=== PATIENT | female | born 1940 | race Caucasian/White ===

== ENCOUNTER 2018-02-06 11:50 | Outpatient (CLI) | payer MEDICARE | END 2018-02-06 11:51 | disposition home or self-care (01) | LOC: BICMAMMO 11:50 | PROVIDERS: ATTEND Family Medicine | DX: Z12.31 Encounter for screening mammogram for malignant neoplasm of breast (principal); R92.1 Mammographic calcification found on diagnostic imaging of breast; Z80.3 Family history of malignant neoplasm of breast | CPT/HCPCS: 77063; 77067 ==

== ENCOUNTER 2020-05-29 22:59 | Emergency (ER) | payer MEDICARE ==
[2020-05-29] MEDS ORDERED: cloNIDine 0.1 MG TAB ONE (23:15)
--- NOTE | 2020-05-29 23:31 | RAD ---
Portable frontal chest radiograph: 05/29/2020 COMPARISON: 09/17/2015 HISTORY: Difficulty breathing, shortness of breath FINDINGS: There is stable prominence of the cardiac silhouette and atherosclerotic calcification of t he aortic arch. There is stable increased linear interstitial density with pulmonary hyperinflation. No focal consolidation or alveolar edema. IMPRESSION: No acute findings.
[2020-05-29 23:33] LABS: #Basophils 0.1 thou/uL (0.0-0.2); #Eosinphils 0.1 thou/uL (0.0-0.7); #Lymphocytes 3.3 thou/uL (1.20-3.40); #Monocytes 0.6 thou/uL (0.11-0.59); #Neutrophils 4.6 thou/uL (1.40-6.50); %Basophils 0.8 % (0.0-1.0); %Eosinophils 1.4 % (0.0-10.0); %Lymphocytes 38.5 % (21.0-51.0); %Monocytes 6.4 % (0.0-10.0); %Neutrophils 52.9 % (42.0-75.0); Hemoglobin 11.5 g/dL (12.0-16.0); Mean Corpuscular HGB CONC 33.6 g/dL (32.0-36.0); Mean Corpuscular Hemoglobin 29.5 pg (27.0-31.0); Mean Corpuscular Volume 87.9 fL (78.0-98.0); Mean Platelet Volume 8.5 fL (7.4-10.4); Platelet Count 240 thou/uL (130-400); RBC Distribution Width 14.5 % (11.5-14.5); Red Blood Cell (RBC) Count 3.91 mill/uL (4.20-5.40); White Blood Cell (WBC) Count 8.7 thou/uL (4.8-10.8)
[2020-05-29 23:54] LABS: ALT (SGPT) 9 U/L (8-55); AST (SGOT) 9 U/L (5-34); Alkaline Phosphatase 53 U/L (40-110); Anion Gap 14 mmol/L (10-20); BUN (Urea Nitrogen) 14 mg/dL (9.8-20.1); Bilirubin, Total 0.6 mg/dL (0.2-1.2); Calc. Creatinine Clearance 0 mL/min (70-130); Calcium 9.4 mg/dL (7.8-10.44); Carbon Dioxide 23 mmol/L (23-31); Chloride 102 mmol/L (98-107); Globulin 2.7 g/dL (2.4-3.5); Glucose 295 mg/dL (83-110); Potassium 3.6 mmol/L (3.5-5.1); Protein, Total 6.7 g/dL (6.0-8.3); Sodium 135 mmol/L (136-145)
--- NOTE | 2020-06-03 10:33 | EKG ---
Test Reason : Blood Pressure : / mmHG Vent. Rate : 058 BPM Atrial Rate : 058 BPM P-R Int : 138 ms QRS Dur : 082 ms QT Int : 428 ms P-R-T Axes : 055 -06 053 degrees QTc Int : 420 ms Sinus bradycardia Possible Left atrial enlargement Left ventricular hypertrophy ST abnormality, possible digitalis effect Abnormal ECG Confirmed by MICHAEL VYAS M.D. ([id number]), managing editor JONNA MCCORD ([id number] on 06/03/2020 10:33:04 AM Referred By: Confirmed By:MICHAEL VYAS M.D.
== END 2020-05-30 00:53 | disposition home or self-care (01) ==
LOC: ERS 22:59
DX: R06.01 Orthopnea (principal); E11.65 Type 2 diabetes mellitus with hyperglycemia; K21.9 Gastro-esophageal reflux disease without esophagitis; E78.5 Hyperlipidemia, unspecified; I10 Essential (primary) hypertension; M19.90 Unspecified osteoarthritis, unspecified site; I25.10 Atherosclerotic heart disease of native coronary artery without angina pectoris; Z79.01 Long term (current) use of anticoagulants; Z79.899 Other long term (current) drug therapy; Z79.4 Long term (current) use of insulin
CPT/HCPCS: 71045; 80053; 83880; 84484; 85025; 93005

== ENCOUNTER 2021-07-12 09:59 | Observation (INO) | payer MEDICARE ==
[2021-07-12 10:51] LABS: #Basophils 0.1 thou/uL (0.0-0.2); #Eosinphils 0.1 thou/uL (0.0-0.7); #Monocytes 0.4 thou/uL (0.11-0.59); %Basophils 0.9 % (0.0-1.0); %Eosinophils 1.2 % (0.0-10.0); %Lymphocytes 13.5 % (21.0-51.0); %Monocytes 5.6 % (0.0-10.0); %Neutrophils 78.9 % (42.0-75.0); Hemoglobin 14.7 g/dL (12.0-16.0); Mean Corpuscular HGB CONC 34.2 g/dL (32.0-36.0); Mean Corpuscular Hemoglobin 31.3 pg (27.0-31.0); Mean Corpuscular Volume 91.5 fL (78.0-98.0); Mean Platelet Volume 7.9 fL (7.4-10.4); Platelet Count 280 thou/uL (130-400); RBC Distribution Width 13.2 % (11.5-14.5); Red Blood Cell (RBC) Count 4.71 mill/uL (4.20-5.40); White Blood Cell (WBC) Count 7.6 thou/uL (4.8-10.8)
[2021-07-12] MEDS ORDERED: Nitroglycerin 2% Ointment 1 INCH/1 GM Packet ONE ×2 (11:15→14:17)
[2021-07-12] MEDS ORDERED: Aspirin Chewable 81 MG TAB ONE (11:16)
[2021-07-12 11:20] LABS: ALT (SGPT) 10 U/L (8-55); AST (SGOT) 15 U/L (5-34); Albumin 4.6 g/dL (3.4-4.8); Alkaline Phosphatase 59 U/L (40-110); Anion Gap 17 mmol/L (10-20); BUN (Urea Nitrogen) 15 mg/dL (9.8-20.1); Bilirubin, Total 0.9 mg/dL (0.2-1.2); Calc. Creatinine Clearance 0 mL/min (70-130); Calcium 10.5 mg/dL (7.8-10.44); Carbon Dioxide 21 mmol/L (23-31); Chloride 98 mmol/L (98-107); Globulin 3.4 g/dL (2.4-3.5); Glucose 221 mg/dL (83-110); Potassium 3.9 mmol/L (3.5-5.1); Sodium 132 mmol/L (136-145)
[2021-07-12] MEDS ORDERED: HYDROcodone/Acetaminophen 5/325 mg Tablet PO PRN (13:34)
[2021-07-12] MEDS ORDERED: Dextrose 5% in Water 1,000 ML IV PRN (13:40)
[2021-07-12] MEDS ORDERED: Acetaminophen 325 MG TAB PO PRN (13:40)
[2021-07-12] MEDS ORDERED: HumaLOG 300 UNITS/3 ML VIAL SC PRN (13:40)
[2021-07-12] MEDS ORDERED: Dextrose 50% Abboject 50 ML SYRINGE SLOW IVP PRN (13:40)
[2021-07-12] MEDS ORDERED: Ondansetron PF 4 MG/2 ML Vial IVP PRN (13:40)
[2021-07-12] MEDS ORDERED: Lisinopril 5 MG TAB PO SCH (13:45)
[2021-07-12] MEDS ORDERED: Enoxaparin Sodium 40 MG/0.4 ML SYRINGE SC SCH (13:45)
[2021-07-12] MEDS ORDERED: Nitroglycerin 0.4 MG TAB (25 Tab Bottle) SL PRN (15:10)
[2021-07-12 17:06] LABS: Troponin I 0.031 ng/mL (< 0.028)
[2021-07-12 17:46] VITALS: BMI 22.1
[2021-07-12] MEDS ORDERED: FLU VACC QS2021-22(65YR UP)/PF 240 MCG/0.7 ML SYRINGE IM ONE (18:00)
[2021-07-12] MEDS ORDERED: hydrALAZINE 20 MG/ML VIAL SLOW IVP PRN (18:48)
[2021-07-12] MEDS: Azelastine 137 MCG/Spray 30 ML NS SCH (20:01)
[2021-07-12] MEDS: Metoprolol Tartrate 25 MG TAB PO SCH (20:01)
[2021-07-12] MEDS: Famotidine 20 MG TAB PO SCH (20:01)
[2021-07-12] MEDS: hydrALAZINE 25 MG TAB PO SCH (20:01)
[2021-07-12] MEDS ORDERED: Atorvastatin Calcium 40 MG TAB PO SCH (21:00)
[2021-07-13 05:13] LABS: Anion Gap 12 mmol/L (10-20); BUN (Urea Nitrogen) 18 mg/dL (9.8-20.1); Calc. Creatinine Clearance 29 mL/min (70-130); Carbon Dioxide 22 mmol/L (23-31); Chloride 100 mmol/L (98-107); Glucose 165 mg/dL (83-110); Potassium 3.6 mmol/L (3.5-5.1); Sodium 130 mmol/L (136-145)
[2021-07-13 05:22] LABS: #Basophils 0.1 thou/uL (0.0-0.2); #Eosinphils 0.3 thou/uL (0.0-0.7); #Lymphocytes 2.3 thou/uL (1.20-3.40); #Monocytes 0.7 thou/uL (0.11-0.59); #Neutrophils 4.6 thou/uL (1.40-6.50); %Basophils 0.9 % (0.0-1.0); %Eosinophils 3.3 % (0.0-10.0); %Monocytes 8.5 % (0.0-10.0); %Neutrophils 58.3 % (42.0-75.0); Hemoglobin 11.7 g/dL (12.0-16.0); Mean Corpuscular HGB CONC 35.1 g/dL (32.0-36.0); Mean Corpuscular Hemoglobin 32.9 pg (27.0-31.0); Mean Corpuscular Volume 93.7 fL (78.0-98.0); Mean Platelet Volume 8.2 fL (7.4-10.4); Platelet Count 241 thou/uL (130-400); Red Blood Cell (RBC) Count 3.57 mill/uL (4.20-5.40); White Blood Cell (WBC) Count 7.9 thou/uL (4.8-10.8)
[2021-07-13] MEDS: hydrALAZINE 25 MG TAB PO SCH (07:46)
[2021-07-13] MEDS: Famotidine 20 MG TAB PO SCH (07:47)
[2021-07-13] MEDS: Azelastine 137 MCG/Spray 30 ML NS SCH (07:56)
[2021-07-13] MEDS ORDERED: Citalopram 20 MG TAB PO SCH (09:00)
[2021-07-13] MEDS ORDERED: Fluticasone Propionate Nasal Spray 16 gm Bottle NASAL SCH (09:00)
[2021-07-13] MEDS ORDERED: Enoxaparin Sodium 40 MG/0.4 ML SYRINGE SC SCH (09:00)
[2021-07-13] MEDS ORDERED: Amlodipine 10 MG TAB PO SCH (09:00)
[2021-07-13] MEDS ORDERED: Lisinopril 5 MG TAB PO SCH (09:00)
[2021-07-13] MEDS ORDERED: Aspirin 81 mg Enteric Coated Tablet PO SCH (09:00)
[2021-07-13] MEDS ORDERED: ADENOSINE 60 MG/20 ML VIAL ONE (09:55)
[2021-07-13 11:10] LABS: SARS-CoV-2 PCR by NAA Not Detected (NotDetected)
[2021-07-13] MEDS: Metoprolol Tartrate 25 MG TAB PO SCH (14:14)
[2021-07-13 15:57] VITALS: BP 177/81; TEMP 98.1
== END 2021-07-13 16:25 | disposition home or self-care (01) ==
LOC: ERS 09:59 → ERHOLD 13:32 → 2SW 17:20
PROVIDERS: ADMIT Internal Medicine; ATTEND Physician Assistant Medical
DX: R07.9 Chest pain, unspecified (principal); R06.02 Shortness of breath; I16.0 Hypertensive urgency; I10 Essential (primary) hypertension; E11.9 Type 2 diabetes mellitus without complications; E78.5 Hyperlipidemia, unspecified; M19.90 Unspecified osteoarthritis, unspecified site; K21.9 Gastro-esophageal reflux disease without esophagitis; Z86.73 Personal history of transient ischemic attack (TIA), and cerebral infarction without residual deficits; Z79.1 Long term (current) use of non-steroidal anti-inflammatories (NSAID); Z79.84 Long term (current) use of oral hypoglycemic drugs; Z79.899 Other long term (current) drug therapy; Z96.653 Presence of artificial knee joint, bilateral; Z20.822 Contact with and (suspected) exposure to COVID-19
CPT/HCPCS: 71045; 78452; 80048; 80053; 82962 ×2; 83880; 84484 ×2; 85025 ×2; 93005; 93017; 99285; A9500; U0003; U0005; 36415; 36416; 96372; G0378; J0153; J1650

== ENCOUNTER 2022-09-08 10:20 | Observation (INO) | payer OTHER ==
[2022-09-08] MEDS ORDERED: Amlodipine 5 MG TAB ONE (10:51)
[2022-09-08] MEDS ORDERED: hydrALAZINE 25 MG TAB ONE (10:51)
[2022-09-08 11:00] LABS: #Eosinphils 0.1 thou/uL (0.0-0.7); #Lymphocytes 1.9 thou/uL (1.20-3.40); #Monocytes 0.4 thou/uL (0.11-0.59); %Basophils 0.8 % (0.0-1.0); %Eosinophils 1.9 % (0.0-10.0); %Monocytes 6.3 % (0.0-10.0); Hemoglobin 14.2 g/dL (12.0-16.0); Mean Corpuscular HGB CONC 35.2 g/dL (32.0-36.0); Mean Corpuscular Hemoglobin 32.6 pg (27.0-31.0); Mean Corpuscular Volume 92.4 fl (78.0-98.0); Mean Platelet Volume 8.2 fL (7.4-10.4); Platelet Count 198 10x3/uL (130-400); RBC Distribution Width 12.9 % (11.5-14.5); Red Blood Cell (RBC) Count 4.37 mill/uL (4.20-5.40); White Blood Cell (WBC) Count 6.4 10x3/uL (4.8-10.8)
[2022-09-08 11:20] LABS: ALT (SGPT) 24 U/L (8-55); AST (SGOT) 24 U/L (5-34); Albumin 4.2 g/dL (3.4-4.8); Alkaline Phosphatase 78 U/L (40-110); Anion Gap 12 mmol/L (10-20); BUN (Urea Nitrogen) 20 mg/dL (9.8-20.1); Bilirubin, Total 0.6 mg/dL (0.2-1.2); Calc. Creatinine Clearance 0 mL/min (70-130); Calcium 10.1 mg/dL (7.8-10.44); Carbon Dioxide 24 mmol/L (23-31); Chloride 105 mmol/L (98-107); Estimated GFR 52; Globulin 3.1 g/dL (2.4-3.5); Glucose 192 mg/dL (83-110); Potassium 4.1 mmol/L (3.5-5.1); Protein, Total 7.3 g/dL (5.8-8.1); Sodium 137 mmol/L (136-145)
[2022-09-08] MEDS ORDERED: Bisacodyl 5 MG TAB PO PRN (14:24)
[2022-09-08] MEDS ORDERED: Ondansetron PF 4 MG/2 ML Vial IVP PRN (14:24)
[2022-09-08] MEDS ORDERED: Senokot S 8.6-50 MG TAB PO PRN (14:24)
[2022-09-08] MEDS ORDERED: Dextrose 50% Abboject 50 ML SYRINGE SLOW IVP PRN (14:24)
[2022-09-08] MEDS ORDERED: Bisacodyl 10 MG SUPP PR PRN (14:24)
[2022-09-08] MEDS ORDERED: HumaLOG 300 UNITS/3 ML VIAL SC PRN (14:24)
[2022-09-08] MEDS ORDERED: Dextrose 5% in Water 1,000 ML IV PRN (14:24)
[2022-09-08] MEDS ORDERED: Furosemide 20 MG TAB PO SCH (15:00)
[2022-09-08 15:36] LABS: Troponin I Less than 0.010 ng/mL (< 0.028)
[2022-09-08] MEDS: Acetaminophen 325 MG TAB PO PRN (18:32)
[2022-09-08 18:54] LABS: Troponin I 0.011 ng/mL (< 0.028)
[2022-09-08] MEDS: hydrALAZINE 25 MG TAB PO SCH (21:23)
[2022-09-09] MEDS: Acetaminophen 325 MG TAB PO PRN (07:56)
[2022-09-09] MEDS: Furosemide 40 MG TAB PO SCH ×2 (10:20→15:48)
[2022-09-09] MEDS: Amlodipine 10 MG TAB PO SCH (10:20)
[2022-09-09] MEDS: hydrALAZINE 25 MG TAB PO SCH ×2 (10:21→22:09)
[2022-09-09] MEDS: HumaLOG 300 UNITS/3 ML VIAL SC PRN ×2 (11:45→18:02)
[2022-09-09] MEDS ORDERED: hydrALAZINE 20 MG/ML VIAL SLOW IVP PRN (14:18)
[2022-09-09 18:24] VITALS: BMI 25.6
[2022-09-09] MEDS ORDERED: Sertraline 25 MG TAB PO SCH (21:00)
[2022-09-09] MEDS ORDERED: Atorvastatin Calcium 40 MG TAB PO SCH (21:00)
[2022-09-09] MEDS: Metoprolol Tartrate 25 MG TAB PO SCH (22:10)
[2022-09-10 05:29] LABS: #Eosinphils 0.1 thou/uL (0.0-0.7); #Lymphocytes 2.1 thou/uL (1.20-3.40); #Monocytes 0.6 thou/uL (0.11-0.59); #Neutrophils 4.9 thou/uL (1.40-6.50); %Basophils 0.6 % (0.0-1.0); %Eosinophils 1.7 % (0.0-10.0); %Lymphocytes 26.9 % (21.0-51.0); %Monocytes 7.2 % (0.0-10.0); %Neutrophils 63.5 % (42.0-75.0); Hemoglobin 14.4 g/dL (12.0-16.0); Mean Corpuscular HGB CONC 34.8 g/dL (32.0-36.0); Mean Corpuscular Hemoglobin 32.5 pg (27.0-31.0); Mean Corpuscular Volume 93.4 fl (78.0-98.0); Mean Platelet Volume 8.4 fL (7.4-10.4); Platelet Count 219 10x3/uL (130-400); RBC Distribution Width 13.2 % (11.5-14.5); Red Blood Cell (RBC) Count 4.43 mill/uL (4.20-5.40); White Blood Cell (WBC) Count 7.8 10x3/uL (4.8-10.8)
[2022-09-10 05:47] LABS: ALT (SGPT) 19 U/L (8-55); AST (SGOT) 13 U/L (5-34); Albumin 4.1 g/dL (3.4-4.8); Alkaline Phosphatase 74 U/L (40-110); Anion Gap 14 mmol/L (10-20); BUN (Urea Nitrogen) 23 mg/dL (9.8-20.1); Bilirubin, Total 0.6 mg/dL (0.2-1.2); Calc. Creatinine Clearance 32 mL/min (70-130); Calcium 10.6 mg/dL (7.8-10.44); Carbon Dioxide 23 mmol/L (23-31); Chloride 101 mmol/L (98-107); Estimated GFR 43; Glucose 237 mg/dL (83-110); Potassium 3.7 mmol/L (3.5-5.1); Protein, Total 7.1 g/dL (5.8-8.1); Sodium 134 mmol/L (136-145)
[2022-09-10] MEDS: Metoprolol Tartrate 25 MG TAB PO SCH (08:09)
[2022-09-10] MEDS: Acetaminophen 325 MG TAB PO PRN (08:11)
[2022-09-10] MEDS: Amlodipine 10 MG TAB PO SCH (08:12)
[2022-09-10] MEDS: hydrALAZINE 25 MG TAB PO SCH (08:13)
[2022-09-10] MEDS ORDERED: Empagliflozin 25 MG TAB PO SCH (09:00)
[2022-09-10] MEDS ORDERED: Aspirin 81 mg Enteric Coated Tablet PO SCH (09:00)
[2022-09-10] MEDS ORDERED: Valsartan 80 MG TAB PO SCH (09:00)
[2022-09-10] MEDS ORDERED: Metoprolol Tartrate 25 MG TAB PO SCH ×2 (09:05→21:00)
[2022-09-10] MEDS ORDERED: Sodium Chloride 0.9% 500 ML IV SCH (09:30)
[2022-09-10] MEDS: Furosemide 40 MG TAB PO SCH (09:37)
[2022-09-10 17:07] VITALS: BP 137/69; TEMP 98.6
== END 2022-09-10 17:35 | disposition home or self-care (01) ==
LOC: SUATTDRO 10:20 → ERS 10:20 → 2SW 14:14
PROVIDERS: ADMIT Internal Medicine; ATTEND Internal Medicine
DX: G45.9 Transient cerebral ischemic attack, unspecified (principal); I16.0 Hypertensive urgency; I10 Essential (primary) hypertension; E11.9 Type 2 diabetes mellitus without complications; K21.9 Gastro-esophageal reflux disease without esophagitis; E78.5 Hyperlipidemia, unspecified; I08.3 Combined rheumatic disorders of mitral, aortic and tricuspid valves; M48.00 Spinal stenosis, site unspecified; M15.1 Heberden's nodes (with arthropathy); M18.11 Unilateral primary osteoarthritis of first carpometacarpal joint, right hand; Z86.73 Personal history of transient ischemic attack (TIA), and cerebral infarction without residual deficits; Z91.148 Patient's other noncompliance with medication regimen for other reason; Z79.84 Long term (current) use of oral hypoglycemic drugs; Z79.899 Other long term (current) drug therapy
CPT/HCPCS: 36415; 36416; 70450; 71045; 80053; 83880; 84484; 84550; 85025; 93005; 93010; 93306; 94760; 95816; 95819; 95957; 96372; G0378; J1650; J1815; J7030

== ENCOUNTER 2023-11-20 18:42 | Emergency (ER) | payer OTHER ==
[2023-11-20] MEDS ORDERED: hydrALAZINE 20 MG/ML VIAL ONE (19:16)
[2023-11-20 19:30] LABS: #Basophils 0.03 10x3/uL (0.0-0.2); %Basophils 0.4 % (0.0-1.0); %Eosinophils 1.3 % (0.0-10.0); %Lymphocytes 20.5 % (21.0-51.0); %Monocytes 9.3 % (0.0-10.0); %Neutrophils 68.1 % (42.0-75.0); Hematocrit 36.5 % (36.0-47.0); Hemoglobin 12.8 g/dL (12.0-16.0); Mean Corpuscular HGB CONC 35.1 g/dL (32.0-36.0); Mean Corpuscular Hemoglobin 32.1 pg (27.0-31.0); Mean Corpuscular Volume 91.5 fL (78.0-98.0); Mean Platelet Volume 10.4 fL (7.4-10.4); Platelet Count 183 10x3/uL (130-400); RBC Distribution Width 13.3 % (11.5-14.5); Red Blood Cell (RBC) Count 3.99 mill/uL (4.20-5.40)
[2023-11-20 19:45] LABS: ALT (SGPT) 26 U/L (8-55); AST (SGOT) 28 U/L (5-34); Albumin 3.7 g/dL (3.4-4.8); Alkaline Phosphatase 60 U/L (40-110); Anion Gap 18 mmol/L (10-20); BUN (Urea Nitrogen) 19 mg/dL (9.8-20.1); Bilirubin, Total 0.9 mg/dL (0.2-1.2); Calc. Creatinine Clearance 0 mL/min (70-130); Calcium 9.8 mg/dL (7.8-10.44); Carbon Dioxide 18 mmol/L (23-31); Chloride 105 mmol/L (98-107); Estimated GFR 68; Globulin 3.2 g/dL (2.4-3.5); Glucose 161 mg/dL (83-110); Potassium 3.7 mmol/L (3.5-5.1); Protein, Total 6.9 g/dL (5.8-8.1); Sodium 137 mmol/L (136-145)
== END 2023-11-20 22:15 | disposition home or self-care (01) ==
LOC: ERS 18:42
DX: Z04.3 Encounter for examination and observation following other accident (principal); E11.9 Type 2 diabetes mellitus without complications; I10 Essential (primary) hypertension; K21.9 Gastro-esophageal reflux disease without esophagitis; M19.90 Unspecified osteoarthritis, unspecified site; Z55.6 Problems related to health literacy
CPT/HCPCS: 70450; 72170; 80053; 85025; 93005; J0360; 96374

== ENCOUNTER 2024-05-17 12:21 | Emergency (ER) | payer OTHER, MEDICARE ==
[2024-05-17] MEDS ORDERED: Aspirin Chewable 81 MG TAB ONE (13:26)
[2024-05-17 13:37] LABS: #Basophils 0.03 10x3/uL (0.0-0.2); %Basophils 0.4 % (0.0-1.0); %Eosinophils 2.1 % (0.0-10.0); %Lymphocytes 17.4 % (21.0-51.0); %Monocytes 6.7 % (0.0-10.0); %Neutrophils 73.1 % (42.0-75.0); Hematocrit 40.4 % (36.0-47.0); Hemoglobin 13.6 g/dL (12.0-16.0); Mean Corpuscular HGB CONC 33.7 g/dL (32.0-36.0); Mean Corpuscular Hemoglobin 31.2 pg (27.0-31.0); Mean Corpuscular Volume 92.7 fL (78.0-98.0); Mean Platelet Volume 10.9 fL (7.4-10.4); Platelet Count 214 10x3/uL (130-400); RBC Distribution Width 14.2 % (11.5-14.5); Red Blood Cell (RBC) Count 4.36 mill/uL (4.20-5.40)
[2024-05-17 13:49] LABS: ALT (SGPT) 12 U/L (8-55); AST (SGOT) 12 U/L (5-34); Albumin 3.9 g/dL (3.4-4.8); Alkaline Phosphatase 72 U/L (40-110); Anion Gap 14 mmol/L (10-20); BUN (Urea Nitrogen) 19 mg/dL (9.8-20.1); Bilirubin, Total 0.7 mg/dL (0.2-1.2); Calc. Creatinine Clearance 0 mL/min (70-130); Calcium 9.6 mg/dL (7.8-10.44); Carbon Dioxide 23 mmol/L (23-31); Chloride 107 mmol/L (98-107); Estimated GFR 48; Globulin 3.3 g/dL (2.4-3.5); Glucose 126 mg/dL (83-110); Potassium 3.3 mmol/L (3.5-5.1); Protein, Total 7.2 g/dL (5.8-8.1); Sodium 141 mmol/L (136-145)
[2024-05-17 13:50] LABS: INR-International Normal Ratio 1.1; Prothrombin Time 13.8 sec (12.0-14.7)
[2024-05-17 13:55] LABS: Troponin I 0.014 ng/mL (< 0.028)
[2024-05-17] MEDS ORDERED: hydrALAZINE 25 MG TAB ONE (20:34)
== END 2024-05-17 21:22 | disposition short-term general hospital (02) ==
LOC: ERS 12:21
DX: I63.9 Cerebral infarction, unspecified (principal); R53.1 Weakness; R29.705 NIHSS score 5; E11.9 Type 2 diabetes mellitus without complications; I10 Essential (primary) hypertension; E78.5 Hyperlipidemia, unspecified; Z79.84 Long term (current) use of oral hypoglycemic drugs; Z79.82 Long term (current) use of aspirin; Z79.899 Other long term (current) drug therapy
CPT/HCPCS: 0042T; 70450; 70496; 70498; 80053; 82962; 84484; 85025; 85610; 85730; 93005; 94760; 36416